=== PATIENT | female | born 1990 | race African-American/Black ===

== ENCOUNTER 2017-04-08 09:14 | Emergency (ER) | payer SELFPAY ==
[~2017-04-08 09:14] MED LIST: KEFLEX500 MG ORAL; NAPROXEN375 MG PO; NKM; NORCO 5-325 TA1 EACH ORAL; TRAMADOL HCL50 MG ORAL; ZANTAC150 MG ORAL; ZOFRAN ODT4 MG ORAL
--- NOTE | 2017-04-08 14:20 | Emergency Room Report ---
History of Present Illness General Chief Complaint: To Be Triaged Present Illness HPI Patient eloped before being seen by triage nurse or physician Allergies: Coded Allergies: No Known Allergies (Unverified , 04/02/12) Nursing Documentation-PMH Hx Asthma: Yes Hx Gastrointestinal Problems: Yes - gerd Medical Decision Making Diagnostic Impression: Primary Impression: Anxiety Disposition: LEFT W/OUT BEING SEEN Condition: Unknown Referrals: NOT CHOSEN IPA/,REFERRING (PCP) Ann Love M.D. Apr 08, 2017 14:19
[2017-04-09] MEDS ORDERED: PEPCID40 MG PO (09:26)
[2017-04-09] MEDS ORDERED: NITROFURANTOIN100 M2 ORAL (09:58)
== END 2017-04-08 11:00 | disposition left against medical advice (07) ==
LOC: EMR 10:30
DX: Z53.21 Procedure and treatment not carried out due to patient leaving prior to being seen by health care provider (principal); K21.9 Gastro-esophageal reflux disease without esophagitis; J45.909 Unspecified asthma, uncomplicated

== ENCOUNTER 2017-04-09 08:31 | Emergency (ER) | payer SELFPAY ==
[~2017-04-09] VITALS: Ht 160 cm; Wt 79.4 kg
[2017-04-09 08:44] VITALS: BP 140/107
[2017-04-09] MEDS ORDERED: LORazepam Inj 2mg/ml 1ml IV ONE (09:00)
[2017-04-09 09:03] LABS: APPEARANCE,URINE TURBID; BILIRUBIN, URINE NEGATIVE (NEGATIVE); GLUCOSE, URINE (UA) 3+ (NEGATIVE); KETONES,URINE 3+ (NEGATIVE); LEUKOCYTE ESTERASE ,URINE 3+ (NEGATIVE); NITRITE,URINE NEGATIVE (NEGATIVE); PH,URINE 6 (4.5-8.0); PROTEIN,URINE 2+ (NEGATIVE); UROBILINOGEN,URINE NORMAL MG/DL (0.0-1.0)
[2017-04-09 09:06] LABS: COLOR,URINE YELLOW
[2017-04-09 09:06] LABS: BASOPHILS % (AUTO) 3.2 % (0.0-2.0); EOSINOPHILS % (AUTO) 1.5 % (0.0-3.0); HEMATOCRIT 45.4 % (37.0-47.0); HEMOGLOBIN 15.5 G/DL (12.0-16.0); LYMPHOCYTES % (AUTO) 18.4 % (20.0-45.0); MEAN CORPUSCULAR VOLUME 90 FL (80-99); MONOCYTES % (AUTO) 9.8 % (1.0-10.0); NEUTROPHILS % (AUTO) 67.1 % (45.0-75.0); PLATELET COUNT 248 K/UL (150-450); RED BLOOD COUNT 5.04 M/UL (4.20-5.40); RED CELL DISTRIBUTION WIDTH 12.8 % (11.6-14.8); WHITE BLOOD COUNT 6.3 K/UL (4.8-10.8)
[2017-04-09 09:18] LABS: ANION GAP 12 mmol/L (5-15); BLOOD UREA NITROGEN 4 mg/dL (7-18); CALCIUM 9.6 MG/DL (8.5-10.1); CARBON DIOXIDE 26 MMOL/L (21-32); CHLORIDE 99 MMOL/L (98-107); CREATININE 0.9 MG/DL (0.55-1.30); POTASSIUM 3.6 MMOL/L (3.5-5.1); SODIUM 136 MMOL/L (136-145)
--- NOTE | 2017-04-09 09:25 | Emergency Room Report ---
History of Present Illness General Chief Complaint: General Complaint Source: Patient Present Illness HPI 27-year-old female, history of intermittent alcohol use, p/w epigastric abd pain nausea and vomiting for 3 days. Pt reports n/v, 6 episodes of nbnb vomiting, no diarrhea. Denies black or bloody stools. Patient states pain started gradually , localized to epigastric area, non radiating, burning in nature, intermittent. No relieving or exacerbating factors. Admits to have this pain multiple times in the past. denies chronic NSAID use. Denies fever, chills. No hx of abdominal surgeries. No hx of endoscopies/colonoscopies. States that she frequently binges alcohol but does not drink every day, states that she drank yesterday and took multiple shots of alcohol Allergies: Coded Allergies: No Known Allergies (Unverified , 04/02/12) Patient History Past Medical History: see triage record Past Surgical History: none Pertinent Family History: none Last Menstrual Period: 04/02/17 Now: No Reviewed Nursing Documentation: PMH: Agreed, PSxH: Agreed Nursing Documentation-PMH Hx Asthma: Yes Hx Gastrointestinal Problems: Yes - GERD Review of Systems All Other Systems: negative except mentioned in HPI Physical Exam Vital Signs Date Time Temp Pulse Resp B/P (MAP) Pulse Ox O2 Delivery O2 Flow Rate FiO2 04/09/17 08:34 97.9 103 17 149/104 95 Room Air 97.9 Sp02 EP Interpretation: reviewed, normal General Appearance: alert, GCS 15, non-toxic, moderate distress Head: normocephalic, atraumatic Eyes: bilateral eye normal inspection, bilateral eye PERRL, bilateral eye EOMI ENT: normal ENT inspection, normal pharynx, normal voice, moist mucus membranes Neck: normal inspection, full range of motion, supple Respiratory: normal inspection, lungs clear, normal breath sounds, no respiratory distress, no retraction, no wheezing, speaking full sentences, chest symmetrical Cardiovascular #1: normal inspection, regular rate, rhythm, no edema, normal capillary refill Cardiovascular #2: 2+ radial (R), 2+ radial (L) Gastrointestinal: normal inspection, non tender, soft, non-distended, no guarding Musculoskeletal: normal inspection, back normal, normal range of motion, non- tender Neurologic: normal inspection, alert, oriented x3, responsive, motor strength/ tone normal, sensory intact, normal gait, speech normal Psychiatric: judgement/insight normal, memory normal, anxious Skin: normal inspection, normal color, no rash, warm/dry, well hydrated, normal turgor Medical Decision Making Diagnostic Impression: Primary Impression: UTI (urinary tract infection) Additional Impressions: Nausea and vomiting Alcohol dependence ER Course 27-year-old female with nausea vomiting, epigastric pain, after alcohol binge Differential Diagnosis: Alcohol-induced Gastritis, gastroenteritis, cholecystitis, appendicitis, UTI/ pyelo At this time abdomen is soft nontender, not likely to have acute intra- abdominal surgical pathology, will hold CT for now. Plan: Basic labs, ua Pepcid, maalox, pain control, IVF ER course: Patient has remained stable during ED stay. given ativan for very mild anxiety with HR 101. no obvious tremors or tongue fasciculations Pain improved. Repeat abdominal exam is nontender. repeat HR 80s pt given librium Disposition: Patient is to be discharged to home. Prescriptions given are Pepcid, macrobid for UTI Patient is instructed to follow up with their primary care doctor within 5 days. Also told to seek alcohol detox / AA anonymous Patient is instructed to follow up with gastroenterology if not better or she may need further workup outpatient Strict return precautions discussed with patient such as fever, chills, worsening/severe abdominal pain, nausea, vomiting, black or bloody stools, which may indicate severe illness. Patient verbalizes understanding and agrees with plan. Please note that this Emergency Department Report was dictated using [employer] sales representative technology software, occasionally this can lead to erroneous entry secondary to interpretation by the dictation equipment Rhythm Strip EP Interpretation: Yes Rate: 84 Rhythm: NSR, no PVCs, no ectopy Laboratory Tests Test 04/09/17 08:40 04/09/17 08:50 Urine Color Yellow Urine Appearance Turbid Urine pH 6 (4.5-8.0) Urine Specific [place] 1.025 (1.005-1.035) Urine Protein 2+ (NEGATIVE) H Urine Glucose (UA) 3+ (NEGATIVE) H Urine Ketones 3+ (NEGATIVE) H Urine Occult Blood 3+ (NEGATIVE) H Urine Nitrite Negative (NEGATIVE) Urine Bilirubin Negative (NEGATIVE) Urine Urobilinogen Normal MG/DL (0.0-1.0) Urine Leukocyte Esterase 3+ (NEGATIVE) H Urine RBC 10-15 /HPF (0 - 2) H Urine WBC 30-40 /HPF (0 - 2) H Urine Squamous Epithelial Cells Moderate /LPF (NONE/OCC) H Urine Bacteria Many /HPF (NONE) H Urine Mucus Moderate /LPF (NONE/OCC) H Urine HCG, Qualitative Negative Urine Opiates Screen Negative (NEGATIVE) Urine Barbiturates Screen Negative (NEGATIVE) Phencyclidine (PCP) Screen Negative (NEGATIVE) Urine Amphetamines Screen Negative (NEGATIVE) Urine Benzodiazepines Screen Negative (NEGATIVE) Urine Cocaine Screen Negative (NEGATIVE) Urine Marijuana (THC) Screen Negative (NEGATIVE) White Blood Count 6.3 K/UL (4.8-10.8) Red Blood Count 5.04 M/UL (4.20-5.40) Hemoglobin 15.5 G/DL (12.0-16.0) Hematocrit 45.4 % (37.0-47.0) Mean Corpuscular Volume 90 FL (80-99) Mean Corpuscular Hemoglobin 30.7 PG (27.0-31.0) Mean Corpuscular Hemoglobin Concent 34.1 G/DL (32.0-36.0) Red Cell Distribution Width 12.8 % (11.6-14.8) Platelet Count 248 K/UL (150-450) Mean Platelet Volume 7.1 FL (6.5-10.1) Neutrophils (%) (Auto) 67.1 % (45.0-75.0) Lymphocytes (%) (Auto) 18.4 % (20.0-45.0) L Monocytes (%) (Auto) 9.8 % (1.0-10.0) Eosinophils (%) (Auto) 1.5 % (0.0-3.0) Basophils (%) (Auto) 3.2 % (0.0-2.0) H Sodium Level 136 MMOL/L (136-145) Potassium Level 3.6 MMOL/L (3.5-5.1) Chloride Level 99 MMOL/L (98-107) Carbon Dioxide Level 26 MMOL/L (21-32) Anion Gap 12 mmol/L (5-15) Blood Urea Nitrogen 4 mg/dL (7-18) L Creatinine 0.9 MG/DL (0.55-1.30) Estimate Glomerular Filtration Rate > 60 mL/min (>60) Glucose Level 101 MG/DL (74-106) Calcium Level 9.6 MG/DL (8.5-10.1) Total Bilirubin 1.1 MG/DL (0.2-1.0) H Direct Bilirubin 0.2 MG/DL (0.0-0.3) Aspartate Amino Transferase (AST) 94 U/L (15-37) H Alanine Aminotransferase (ALT) 74 U/L (12-78) Alkaline Phosphatase 62 U/L (46-116) Total Protein 8.5 G/DL (6.4-8.2) H Albumin 4.2 G/DL (3.4-5.0) Globulin 4.3 g/dL Albumin/Globulin Ratio 1.0 (1.0-2.7) Lipase 130 U/L (73-393) Serum Alcohol 45 mg/dL Last Vital Signs Date Time Temp Pulse Resp B/P (MAP) Pulse Ox O2 Delivery O2 Flow Rate FiO2 04/09/17 08:44 97.9 101 19 140/107 97 Room Air 97.9 Disposition: HOME, SELF-CARE Condition: Improved Scripts Nitrofurantoin Monohyd/M-Cryst* (MACROBID 100 MG*) 100 Mg Capsule 100 MG ORAL EVERY 12 HOURS for 7 Days, #14 CAP 0 Refills Prov: Ann Love M.D. 04/09/17 Famotidine (PEPCID) 40 Mg Tablet 40 MG PO QHS, #14 TAB 0 Refills Prov: Ann Love M.D. 04/09/17 Ann Love M.D. Apr 09, 2017 09:25
[2017-04-09] MEDS ORDERED: PEPCID40 MG PO (09:26)
[2017-04-09 09:28] LABS: ALANINE AMINOTRANSFERASE 74 U/L (12-78); ALBUMIN 4.2 G/DL (3.4-5.0); ALKALINE PHOSPHATASE 62 U/L (46-116); ASPARTATE AMINO TRANSFERASE 94 U/L (15-37); BILIRUBIN,TOTAL 1.1 MG/DL (0.2-1.0)
[2017-04-09 09:35] LABS: BILIRUBIN,DIRECT 0.2 MG/DL (0.0-0.3)
[2017-04-09] MEDS ORDERED: chlordiazePOXIDE 25mg Cap ORAL ONE (09:45)
[2017-04-09 09:50] VITALS: BP 131/88
[2017-04-09] MEDS ORDERED: NITROFURANTOIN100 M2 ORAL (09:58)
== END 2017-04-09 09:50 | disposition home or self-care (01) ==
LOC: EMR 09:20
DX: N39.0 Urinary tract infection, site not specified (principal); R11.2 Nausea with vomiting, unspecified; F10.20 Alcohol dependence, uncomplicated; R10.13 Epigastric pain; J45.909 Unspecified asthma, uncomplicated; K21.9 Gastro-esophageal reflux disease without esophagitis
CPT/HCPCS: 36415; 80053; 80307; 81003; 81025; 82248; 83690; 85025; 87086; 96361; 96374; 96375; 99284; G0480; J2405; S0028; 80329

== ENCOUNTER 2017-08-05 13:54 | Emergency (ER) | payer MEDICAID ==
[~2017-08-05] VITALS: Ht 160 cm; Wt 79.4 kg
[~2017-08-05 13:54] MED LIST changes: +NITROFURANTOIN100 M2 ORAL; +PEPCID40 MG PO
[2017-08-05 14:09] VITALS: BP 142/88
[2017-08-05] MEDS ORDERED: Sodium Chloride 500ML 500 ML IV ONE (14:11)
[2017-08-05 14:39] LABS: APPEARANCE,URINE SLIGHTLY CLOUDY; BILIRUBIN, URINE NEGATIVE (NEGATIVE); COLOR,URINE PALE YELLOW; GLUCOSE, URINE (UA) NEGATIVE (NEGATIVE); KETONES,URINE NEGATIVE (NEGATIVE); LEUKOCYTE ESTERASE ,URINE 1+ (NEGATIVE); NITRITE,URINE NEGATIVE (NEGATIVE); PH,URINE 7 (4.5-8.0); PROTEIN,URINE NEGATIVE (NEGATIVE); UROBILINOGEN,URINE NORMAL MG/DL (0.0-1.0)
--- NOTE | 2017-08-05 14:40 | Emergency Room Report ---
History of Present Illness General Chief Complaint: Abdominal Pain Source: Patient Present Illness HPI Patient presents with complaints of general weakness reports that this morning around 5:00 she became nauseated Had vomiting episode along with diarrhea She feels chills and at times shaky Reports that 2 of her family members have had recent flu symptoms Denies any neck pain or photophobia Had mild epigastric cramping but she with the vomiting but no other abdominal pain at this time Denies any rash denies any recent travel Allergies: Coded Allergies: No Known Allergies (Unverified , 04/02/12) Patient History Past Medical History: see triage record Pertinent Family History: none Last Menstrual Period: 2 weeks ago Now: No Reviewed Nursing Documentation: PMH: Agreed; PSxH: Agreed Nursing Documentation-PMH Past Medical History: No Stated History Hx Asthma: Yes Hx Gastrointestinal Problems: Yes - GERD Review of Systems All Other Systems: negative except mentioned in HPI Physical Exam Vital Signs Date Time Temp Pulse Resp B/P (MAP) Pulse Ox O2 Delivery O2 Flow Rate FiO2 08/05/17 13:59 98.3 96 22 134/88 98 Room Air 98.2 Sp02 EP Interpretation: reviewed, normal General Appearance: well appearing, no apparent distress Head: normocephalic, atraumatic Eyes: bilateral eye PERRL, bilateral eye EOMI ENT: hearing grossly normal, normal pharynx, TMs + canals normal, uvula midline Neck: full range of motion, supple, no meningismus, no bony tend Respiratory: lungs clear, normal breath sounds, no rhonchi, no respiratory distress, no retraction, no accessory muscle use Cardiovascular #1: normal peripheral pulses, regular rate, rhythm, no edema, no gallop, no JVD, no murmur Gastrointestinal: normal bowel sounds, non tender, soft, no mass, no organomegaly, non-distended, no guarding, no hernia, no pulsatile mass, no rebound Genitourinary: no CVA tenderness Musculoskeletal: normal inspection Neurologic: oriented x3, responsive, hospital clerk III-XII nml as tested, motor strength/ tone normal, sensory intact Psychiatric: mood/affect normal Skin: normal color, no rash, warm/dry, palpation normal Lymphatic: normal inspection, no adenopathy Medical Decision Making Diagnostic Impression: Primary Impression: Nausea and vomiting Additional Impression: Diarrhea ER Course With the patient's history and examination, multiple differentials considered, including but not limited to , ectopic , ovarian torsion, gastritis, cholecystitis, pancreatitis, appendicitis Given the patient's repeat abdominal exam emergency imaging was not obtained Patient's blood work is at baseline levels Patient also at the time of discussion reports that she had some alcohol this weekend Otherwise continues to feel better and at this time is stable for close outpatient follow-up Labs Test 08/05/17 14:20 White Blood Count 7.9 K/UL (4.8-10.8) Red Blood Count 5.02 M/UL (4.20-5.40) Hemoglobin 14.5 G/DL (12.0-16.0) Hematocrit 44.6 % (37.0-47.0) Mean Corpuscular Volume 89 FL (80-99) Mean Corpuscular Hemoglobin 29.0 PG (27.0-31.0) Mean Corpuscular Hemoglobin Concent 32.6 G/DL (32.0-36.0) Red Cell Distribution Width 11.9 % (11.6-14.8) Platelet Count 268 K/UL (150-450) Mean Platelet Volume 8.0 FL (6.5-10.1) Neutrophils (%) (Auto) 66.5 % (45.0-75.0) Lymphocytes (%) (Auto) 20.3 % (20.0-45.0) Monocytes (%) (Auto) 8.4 % (1.0-10.0) Eosinophils (%) (Auto) 2.9 % (0.0-3.0) Basophils (%) (Auto) 2.0 % (0.0-2.0) Urine Color Pale yellow Urine Appearance Slightly cloudy Urine pH 7 (4.5-8.0) Urine Specific [place] 1.010 (1.005-1.035) Urine Protein Negative (NEGATIVE) Urine Glucose (UA) Negative (NEGATIVE) Urine Ketones Negative (NEGATIVE) Urine Occult Blood 1+ (NEGATIVE) Urine Nitrite Negative (NEGATIVE) Urine Bilirubin Negative (NEGATIVE) Urine Urobilinogen Normal MG/DL (0.0-1.0) Urine Leukocyte Esterase 1+ (NEGATIVE) Urine RBC 2-4 /HPF (0 - 2) Urine WBC 5-10 /HPF (0 - 2) Urine Squamous Epithelial Cells Many /LPF (NONE/OCC) Urine Bacteria Few /HPF (NONE) Urine HCG, Qualitative Negative (NEGATIVE) Sodium Level 136 MMOL/L (136-145) Potassium Level 3.6 MMOL/L (3.5-5.1) Chloride Level 101 MMOL/L (98-107) Carbon Dioxide Level 26 MMOL/L (21-32) Anion Gap 9 mmol/L (5-15) Blood Urea Nitrogen 8 mg/dL (7-18) Creatinine 0.9 MG/DL (0.55-1.30) Estimat Glomerular Filtration Rate > 60 mL/min (>60) Glucose Level 94 MG/DL (74-106) Calcium Level 8.9 MG/DL (8.5-10.1) Total Bilirubin 0.4 MG/DL (0.2-1.0) Aspartate Amino Transf (AST/SGOT) 29 U/L (15-37) Alanine Aminotransferase (ALT/SGPT) 55 U/L (12-78) Alkaline Phosphatase 59 U/L (46-116) Total Protein 7.5 G/DL (6.4-8.2) Albumin 3.7 G/DL (3.4-5.0) Globulin 3.8 g/dL Albumin/Globulin Ratio 1.0 (1.0-2.7) Lipase 72 U/L (73-393) Last Vital Signs Date Time Temp Pulse Resp B/P (MAP) Pulse Ox O2 Delivery O2 Flow Rate FiO2 08/05/17 14:09 98.2 78 18 142/88 100 Room Air 98.2 Status: improved Disposition: HOME, SELF-CARE Condition: Improved Scripts Ondansetron (Zofran) 4 Mg Tablet 4 MG ORAL Q6H PRN for Nausea & Vomiting, #12 TAB Prov: Eli Colin DO 08/05/17 Referrals: NOT CHOSEN IPA/MD,REFERRING (PCP) Additional Instructions: Patient is provided with the discharge instructions notified to follow up with primary doctor in the next 2-3 days otherwise return to the er with any worsening symptoms. Please note that this report is being documented using [employer] technology. This can lead to erroneous entry secondary to incorrect interpretation by the dictating instrument. Eli Colin DO Aug 05, 2017 14:40
[2017-08-05 14:44] LABS: EOSINOPHILS % (AUTO) 2.9 % (0.0-3.0); HEMATOCRIT 44.6 % (37.0-47.0); HEMOGLOBIN 14.5 G/DL (12.0-16.0); LYMPHOCYTES % (AUTO) 20.3 % (20.0-45.0); MEAN CORPUSCULAR VOLUME 89 FL (80-99); MONOCYTES % (AUTO) 8.4 % (1.0-10.0); NEUTROPHILS % (AUTO) 66.5 % (45.0-75.0); PLATELET COUNT 268 K/UL (150-450); RED BLOOD COUNT 5.02 M/UL (4.20-5.40); RED CELL DISTRIBUTION WIDTH 11.9 % (11.6-14.8); WHITE BLOOD COUNT 7.9 K/UL (4.8-10.8)
[2017-08-05 15:00] LABS: ALANINE AMINOTRANSFERASE 55 U/L (12-78); ALBUMIN 3.7 G/DL (3.4-5.0); ALKALINE PHOSPHATASE 59 U/L (46-116); ASPARTATE AMINO TRANSFERASE 29 U/L (15-37); BILIRUBIN,TOTAL 0.4 MG/DL (0.2-1.0); BLOOD UREA NITROGEN 8 mg/dL (7-18); CALCIUM 8.9 MG/DL (8.5-10.1); CREATININE 0.9 MG/DL (0.55-1.30)
[2017-08-05 15:10] LABS: ANION GAP 9 mmol/L (5-15); CARBON DIOXIDE 26 MMOL/L (21-32); CHLORIDE 101 MMOL/L (98-107); POTASSIUM 3.6 MMOL/L (3.5-5.1); SODIUM 136 MMOL/L (136-145)
[2017-08-05 16:15] VITALS: BP 134/79
[2017-08-05] MEDS ORDERED: ZOFRAN4 M1 ORAL (16:15)
[2017-08-05 16:25] VITALS: BP 134/79
== END 2017-08-05 16:30 | disposition home or self-care (01) ==
LOC: EMR 14:34
DX: R11.2 Nausea with vomiting, unspecified (principal); R19.7 Diarrhea, unspecified; K21.9 Gastro-esophageal reflux disease without esophagitis; J45.909 Unspecified asthma, uncomplicated
CPT/HCPCS: 36415; 80053; 81003; 81025; 83690; 85025; 96374; 99284; J2405; J7040; 96360

== ENCOUNTER 2017-12-01 15:02 | Emergency (ER) | payer MEDICAID ==
[~2017-12-01] VITALS: Ht 160 cm; Wt 79.4 kg
[~2017-12-01 15:02] MED LIST changes: +CHLORDIAZEPOXID25 MG PO; +ZOFRAN4 M1 ORAL
[2017-12-01 15:09] VITALS: BP 127/84
[2017-12-01] MEDS ORDERED: Bacitracin Oint UD TOPIC ONE (15:30)
[2017-12-01] MEDS ORDERED: Tetanus/Diptheria/Pertussis Vaccine 0.5ml Syr IM ONE (15:30)
--- NOTE | 2017-12-01 15:32 | Emergency Room Report ---
History of Present Illness General Chief Complaint: Multiple Trauma/Fall Source: Patient Present Illness HPI 27-year-old female presents to the emergency department complaining of localized 7 out of 10 in severity lip sensitivity and soreness to the right upper lip and front teeth. Patient reports open wound with some bleeding both on the inside of her lip and outside. Patient states status post mechanical trip and fall where she she landed and hit her top lip. Patient denies loss of consciousness she denies midline neck or back pain. Patient denies pain elsewhere on the body.She reports initially having bleeding however it has subsided. Patient denies bloody nose. She denies dizziness, nausea or vomiting. She denies feeling broken teeth. No pain to the roof of her mouth She is not sure when her last tetanus vaccination was she denies taking blood thinning medications. Patient states she has not taken anything medication for her symptoms today. Allergies: Coded Allergies: No Known Allergies (Unverified , 04/02/12) Patient History Past Medical History: see triage record Past Surgical History: none Pertinent Family History: none Last Menstrual Period: 11/15/17 Reviewed Nursing Documentation: PMH: Agreed; PSxH: Agreed Nursing Documentation-PMH Past Medical History: No Stated History Hx Asthma: Yes Hx Gastrointestinal Problems: Yes - GERD Review of Systems All Other Systems: negative except mentioned in HPI Physical Exam Vital Signs Date Time Temp Pulse Resp B/P (MAP) Pulse Ox O2 Delivery O2 Flow Rate FiO2 12/01/17 15:04 98.3 83 18 127/84 96 Room Air 98.2 Sp02 EP Interpretation: reviewed, normal General Appearance: no apparent distress, alert, GCS 15, non-toxic Head: normocephalic, other - upper lip abrasion- laceration approx 1mm in length, there is also abrasion to the oral mucosa of the upper lip which is 0.4 cm in size, not bleeding, not through and through. Teeth are not loose, some tenderness on palpation of both upper front teeth. some swelling noted to the upper lip, no bony ttp anywhere on the face. Eyes: bilateral eye normal inspection, bilateral eye PERRL ENT: hearing grossly normal, normal voice, other - both upper front teeth are tender but no loose, no bleeding about the gums, no movement with traction on the upper palate. Neck: full range of motion Respiratory: lungs clear, normal breath sounds, speaking full sentences Cardiovascular #1: regular rate, rhythm Musculoskeletal: back normal, gait/station normal, normal range of motion, non- tender Neurologic: alert, oriented x3, responsive, motor strength/tone normal, sensory intact, normal gait, speech normal, grossly normal, oriented Psychiatric: judgement/insight normal Skin: normal color, no rash, warm/dry, well hydrated, abrasions - upper lip abrasion- laceration approx 1mm in length, there is also abrasion to the oral mucosa of the upper lip which is 0.4 cm in size, not bleeding, not through and through. Swelling noted to the upper lip. Lymphatic: no adenopathy Medical Decision Making PA Attestation Dr. Colin is my supervising Physician whom patient management has been discussed with. Diagnostic Impression: Primary Impression: Abrasion of lip, initial encounter Additional Impression: Contusion of lip, initial encounter ER Course 27-year-old female presents to the emergency department complaining of localized 7 out of 10 in severity lip sensitivity and soreness to the right upper lip and front teeth. Patient reports open wound with some bleeding both on the inside of her lip and outside. Patient states status post mechanical trip and fall where she she landed and hit her top lip. Patient denies loss of consciousness she denies midline neck or back pain. Patient denies pain elsewhere on the body.She reports initially having bleeding however it has subsided. Patient denies bloody nose. She denies dizziness, nausea or vomiting. She denies feeling broken teeth. No pain to the roof of her mouth She is not sure when her last tetanus vaccination was she denies taking blood thinning medications. Patient states she has not taken anything medication for her symptoms today. Ddx considered but are not limited to laceration, tendon injury, cellulitis, amputation Vital signs: are WNL, pt. is afebrile H&PE are most consistent with: upper lip abrasion- laceration approx 1mm in length, there is also abrasion to the oral mucosa of the upper lip which is 0.4 cm in size, not bleeding, not through and through. Teeth are not loose, some tenderness on palpation of both upper front teeth. some swelling noted to the upper lip, no bony ttp anywhere on the face. ORDERS: none required at this time, the diagnosis is clinical ED INTERVENTIONS: - Tetanus vaccination is administered. - Wounds are irrigated, both are visualized to be superficial and do not require sutures. -Bacitracin applied to outter lip abrasion. . DISCHARGE: At this time pt. is stable for d/c to home. Will provide printed patient care instructions, and any necessary prescriptions. Care plan and follow up instructions have been discussed with the patient prior to discharge. Last Vital Signs Date Time Temp Pulse Resp B/P (MAP) Pulse Ox O2 Delivery O2 Flow Rate FiO2 12/01/17 15:09 98.2 83 18 127/84 96 Room Air 98.2 Disposition: HOME, SELF-CARE Condition: Stable Scripts Acetaminophen* (TYLENOL EXTRA STRENGTH*) 500 Mg Tablet 500 MG ORAL Q6H, #20 TAB 0 Refills Prov: Kelly Arguello 12/01/17 Allantoin/Onion/Peg/Water (MEDERMA GEL) 20 Gm Gel..gram. 1 APPLIC TP TID, #20 GM 3 Refills Prov: Kelly Arguello 12/01/17 Bacitracin/Polymyxin B Sulfate (BACITRACIN-POLYMYXIN OINTMENT) 28.35 Gm Oint...g. 1 APPLIC TP BID, #28.3 GM Prov: Kelly Arguello 12/01/17 Patient Instructions: Abrasion, Tegl-md-Oour Additional Instructions: Take medications as directed. Follow up with a Primary Care Provider in 3-5 days, even if your symptoms have resolved. --Please review list of primary care clinics, if you do not already have a primary care provider Return sooner to ED if new symptoms occur, or current symptoms become worse. - Please note that this Emergency Department Report was dictated using [employer] analyst developer technology software, occasionally this can lead to erroneous entry secondary to interpretation by the dictation equipment. Kelly Arguello Dec 01, 2017 15:32
[2017-12-01] MEDS ORDERED: TYLENOL EXTRA500 MG ORAL (15:33)
[2017-12-01] MEDS ORDERED: BACITRACIN-P28.35 GM TP (15:33)
[2017-12-01] MEDS ORDERED: MEDERMA GEL20 GM TP (15:33)
[2017-12-01 15:40] VITALS: BP 127/84
== END 2017-12-01 15:41 | disposition home or self-care (01) ==
LOC: EMR 15:25
DX: S00.511A Abrasion of lip, initial encounter (principal); S00.531A Contusion of lip, initial encounter; W01.0XXA Fall on same level from slipping, tripping and stumbling without subsequent striking against object, initial encounter; Y92.9 Unspecified place or not applicable; Z23 Encounter for immunization; J45.909 Unspecified asthma, uncomplicated; K21.9 Gastro-esophageal reflux disease without esophagitis
CPT/HCPCS: 90471; 90715; 99283

== ENCOUNTER 2018-07-03 08:39 | Emergency (ER) | payer SELFPAY ==
[~2018-07-03] VITALS: Ht 160 cm; Wt 79.4 kg
[~2018-07-03 08:39] MED LIST changes: +BACITRACIN-P28.35 GM TP; +MEDERMA GEL20 GM TP; +TYLENOL EXTRA500 MG ORAL
--- NOTE | 2018-07-03 08:56 | Emergency Room Report ---
History of Present Illness General Chief Complaint: Abdominal Pain Source: Patient Present Illness HPI 28yo F p/w n/v multiple episodes of nonbloody/nonbilious material, with epigastric area, sharp, moderate to severe intensity, nonradiating abdominal pain, and one episode of loose stools per day x 3d. Patient denies f/c, urinary complaints, vaginal dc, constipation, or obvious alleviating/ exacerbating factors, but does think it may have been triggered by an episode of binge drinking alcohol 3 , denies any drug or marijuana use however. Allergies: Coded Allergies: No Known Allergies (Unverified , 04/02/12) Patient History Past Medical History: see triage record Last Menstrual Period: 06/26/18 Reviewed Nursing Documentation: PMH: Agreed; PSxH: Agreed Nursing Documentation-PMH Hx Asthma: Yes Hx Gastrointestinal Problems: Yes - GERD Review of Systems All Other Systems: negative except mentioned in HPI Physical Exam Vital Signs Date Time Temp Pulse Resp B/P (MAP) Pulse Ox O2 Delivery O2 Flow Rate FiO2 07/03/18 08:44 98.2 92 16 95 Room Air Sp02 EP Interpretation: reviewed, normal General Appearance: no apparent distress, alert, non-toxic Head: normocephalic Eyes: bilateral eye normal inspection, bilateral eye PERRL, bilateral eye EOMI ENT: normal ENT inspection, hearing grossly normal, normal pharynx, no angioedema, normal voice, moist mucus membranes Neck: normal inspection, full range of motion, supple, supple/symm/no masses Respiratory: chest non-tender, lungs clear, normal breath sounds, chest symmetrical, palpation of chest normal Cardiovascular #1: normal peripheral pulses, regular rate, rhythm Cardiovascular #2: 2+ radial (R), 2+ radial (L) Gastrointestinal: normal inspection, non tender, soft, no mass, no guarding, no rebound Rectal: deferred Genitourinary: normal inspection, no CVA tenderness Musculoskeletal: back normal, gait/station normal, normal range of motion, non- tender, no calf tenderness Neurologic: alert, responsive, medicaid analyst III-XII nml as tested, motor strength/tone normal, sensory intact, speech normal Psychiatric: judgement/insight normal, memory normal, mood/affect normal Skin: normal color, no rash, warm/dry, normal turgor Lymphatic: no adenopathy Medical Decision Making Diagnostic Impression: Primary Impression: Gastritis ER Course Patient extremely well-appearing clinically, and her laboratory examination corroborates this. She has not vomited at all since being here, has soft, nontender abdomen, normal CBC, chemistry panels including lipase, LFTs, negative test, unremarkable urinalysis. She was given IV fluids, Zofran, Pepcid, and will be discharged with instructions to avoid alcohol, and return for severe pain, persistent vomiting, blood in vomit or stools, or any new symptoms. Diagnosis gastritis, will discharge with Pepcid and Zofran Reevaluation Time: 10:04 Last Vital Signs Date Time Temp Pulse Resp B/P (MAP) Pulse Ox O2 Delivery O2 Flow Rate FiO2 07/03/18 08:44 98.2 92 16 95 Room Air Status: improved Reevaluation Impression abdomen soft, nontender, patient feels well Disposition: HOME, SELF-CARE Condition: Stable AKHIL TOM M.D July 03, 2018 08:56
--- NOTE | 2018-07-03 09:01 | NUR ---
ED Nurse Note: Pt came in from home c/o nausea/vomiting/diarrhea since Saturday07/01/18. Pt stated emesis was fluid , sputum, and "whatever I ate". Last bowel movement was this morning. Medial upper abdominal pain 07/28. Will cont to monitor.
[2018-07-03 09:03] VITALS: BP 128/79
--- NOTE | 2018-07-03 09:05 | NUR ---
ED Nurse Note: Blood and urine collected and sent to lab
[2018-07-03 09:14] LABS: APPEARANCE,URINE CLEAR; BILIRUBIN, URINE NEGATIVE (NEGATIVE); COLOR,URINE PALE YELLOW; GLUCOSE, URINE (UA) NEGATIVE (NEGATIVE); KETONES,URINE 2+ (NEGATIVE); LEUKOCYTE ESTERASE ,URINE NEGATIVE (NEGATIVE); NITRITE,URINE NEGATIVE (NEGATIVE); PH,URINE 5 (4.5-8.0); PROTEIN,URINE NEGATIVE (NEGATIVE); UROBILINOGEN,URINE NORMAL MG/DL (0.0-1.0)
[2018-07-03 09:17] LABS: BASOPHILS % (AUTO) 1.7 % (0.0-2.0); EOSINOPHILS % (AUTO) 2.9 % (0.0-3.0); HEMATOCRIT 43.5 % (37.0-47.0); HEMOGLOBIN 14.6 G/DL (12.0-16.0); LYMPHOCYTES % (AUTO) 17.8 % (20.0-45.0); MEAN CORPUSCULAR VOLUME 87 FL (80-99); NEUTROPHILS % (AUTO) 68.6 % (45.0-75.0); PLATELET COUNT 197 K/UL (150-450); RED CELL DISTRIBUTION WIDTH 13.4 % (11.6-14.8); WHITE BLOOD COUNT 6.5 K/UL (4.8-10.8)
[2018-07-03 09:26] LABS: ANION GAP 15 mmol/L (5-15); BLOOD UREA NITROGEN 7 mg/dL (7-18); CALCIUM 9.1 MG/DL (8.5-10.1); CARBON DIOXIDE 23 MMOL/L (21-32); CHLORIDE 100 MMOL/L (98-107); CREATININE 0.8 MG/DL (0.55-1.30); POTASSIUM 3.9 MMOL/L (3.5-5.1); SODIUM 138 MMOL/L (136-145)
[2018-07-03 09:30] LABS: ALANINE AMINOTRANSFERASE 33 U/L (12-78); ALBUMIN 4.1 G/DL (3.4-5.0); ALKALINE PHOSPHATASE 76 U/L (46-116); ASPARTATE AMINO TRANSFERASE 46 U/L (15-37)
[2018-07-03] MEDS ORDERED: PEPCID AC20 M2 PO (10:05)
[2018-07-03] MEDS ORDERED: ZOFRAN4 M1 ORAL (10:05)
[2018-07-03 10:24] VITALS: BP 127/85
[2018-07-03 10:25] VITALS: BP 128/79
--- NOTE | 2018-07-03 10:25 | NUR ---
ER DISCHARGE NOTE: Patient is cleared to be discharged per ERMD, pt is aox4, on room air, with stable vital signs. pt was given dc and prescription instructions, pt was able to verbalize understanding, pt id band and iv site removed without complications. pt is able to ambulate with steady gait. pt took all belongings.
== END 2018-07-03 10:25 | disposition home or self-care (01) ==
LOC: EMR 09:00
DX: K29.70 Gastritis, unspecified, without bleeding (principal); J45.909 Unspecified asthma, uncomplicated; K21.9 Gastro-esophageal reflux disease without esophagitis
CPT/HCPCS: 36415; 80053; 81003; 83690; 84702; 85025; 96361; 96374; 96375; 99284; J2405; S0028

== ENCOUNTER 2019-08-29 00:25 | Emergency (ER) | payer MEDICAID ==
[~2019-08-29] VITALS: Ht 160 cm; Wt 79.4 kg
[~2019-08-29 00:25] MED LIST changes: +LIBRIUM10 MG ORAL; +PEPCID AC20 M2 PO
[2019-08-29 00:39] VITALS: BP 134/98
--- NOTE | 2019-08-29 00:49 | Emergency Room Report ---
History of Present Illness General Chief Complaint: General Complaint Source: Patient Present Illness HPI Is a 29-year-old female with history of alcohol abuse. She is currently in outpatient rehab. She says she started drinking again. Been binge drinking for last few days. Last drink was around 10 PM. She has nausea vomiting and diarrhea. [place] shaky and dizzy. Similar symptom in the past. No suicidal thoughts or homicidal thought. Vomiting is nonbloody nonbilious. Diarrhea is watery and loose. 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 Patient History Past Medical History: see triage record, old chart reviewed Past Surgical History: none Pertinent Family History: none Social History: Reports: alcohol use Last Menstrual Period: 08/22/19 Now: No : 0 Para: 0 Immunizations: other Reviewed Nursing Documentation: PMH: Agreed; PSxH: Agreed Nursing Documentation-PMH Past Medical History: No Stated History Hx Cardiac Problems: No Hx Hypertension: No Hx Pacemaker: No Hx Asthma: No Hx COPD: No Hx Diabetes: No Hx Cancer: No Hx Gastrointestinal Problems: No Hx Dialysis: No History Of Psychiatric Problem: Yes - ETOH abuse 4 years Hx Neurological Problems: No Hx Cerebrovascular Accident: No Hx Seizures: No Review of Systems Eye: Denies: eye pain, blurred vision ENT: Denies: ear pain, nose congestion, throat swelling Respiratory: Denies: cough, shortness of breath Cardiovascular: Denies: chest pain, palpitations Gastrointestinal: Reports: diarrhea, nausea, vomiting; Denies: abdominal pain Musculoskeletal: Denies: back pain, joint pain Skin: Denies: rash Neurological: Denies: headache, numbness Endocrine: Denies: increased thirst, increased urine Hematologic/Lymphatic: Denies: easy bruising All Other Systems: negative except mentioned in HPI Physical Exam Vital Signs Date Time Temp Pulse Resp B/P (MAP) Pulse Ox O2 Delivery O2 Flow Rate FiO2 08/29/19 00:32 98.8 101 22 134/98 (110) 96 Room Air Vitals unremarkable Sp02 EP Interpretation: reviewed, normal General Appearance: well appearing, no apparent distress, alert Head: normocephalic, atraumatic Eyes: bilateral eye PERRL, bilateral eye EOMI ENT: hearing grossly normal, normal pharynx Neck: full range of motion, supple, no meningismus Respiratory: chest non-tender, lungs clear, normal breath sounds Cardiovascular #1: regular rate, rhythm, no murmur Gastrointestinal: normal bowel sounds, non tender, no mass, no organomegaly, no bruit, non-distended Musculoskeletal: back normal, normal range of motion, gait/station normal Psychiatric: mood/affect normal Medical Decision Making Diagnostic Impression: Primary Impression: Alcohol dependence Qualified Codes: F10.20 - Alcohol dependence, uncomplicated Additional Impression: Alcohol withdrawal Qualified Codes: F10.230 - Alcohol dependence with withdrawal, uncomplicated ER Course Patient presents with alcohol withdrawal symptoms. She is better now. Labs unremarkable. Will discharge home. Last Vital Signs Date Time Temp Pulse Resp B/P (MAP) Pulse Ox O2 Delivery O2 Flow Rate FiO2 08/29/19 00:32 98.8 101 22 134/98 (110) 96 Room Air Status: improved Disposition: HOME, SELF-CARE Condition: Stable Scripts Chlordiazepoxide (Chlordiazepoxide HCl) 25 Mg Capsule 25 MG ORAL THREE TIMES A DAY, #15 CAP 0 Refills Prov: Luis Paiz MD 08/29/19 Additional Instructions: Continue with rehab. Follow-up with your doctor in 7 days. Return if symptoms worsen. Luis Paiz MD Aug 29, 2019 00:49
[2019-08-29] MEDS ORDERED: LORazepam Inj 2mg/ml 1ml IV ONE (01:00)
[2019-08-29 01:22] LABS: BASOPHILS % (AUTO) 1.6 % (0.0-2.0); HEMATOCRIT 42.8 % (37.0-47.0); HEMOGLOBIN 13.8 G/DL (12.0-16.0); LYMPHOCYTES % (AUTO) 31.4 % (20.0-45.0); MEAN CORPUSCULAR VOLUME 86 FL (80-99); MONOCYTES % (AUTO) 7.1 % (1.0-10.0); NEUTROPHILS % (AUTO) 56.9 % (45.0-75.0); PLATELET COUNT 286 K/UL (150-450); RED BLOOD COUNT 4.96 M/UL (4.20-5.40); RED CELL DISTRIBUTION WIDTH 13.4 % (11.6-14.8); WHITE BLOOD COUNT 9.3 K/UL (4.8-10.8)
[2019-08-29 01:25] LABS: APPEARANCE,URINE CLEAR; BILIRUBIN, URINE NEGATIVE (NEGATIVE); COLOR,URINE PALE YELLOW; GLUCOSE, URINE (UA) NEGATIVE (NEGATIVE); KETONES,URINE NEGATIVE (NEGATIVE); LEUKOCYTE ESTERASE ,URINE NEGATIVE (NEGATIVE); NITRITE,URINE NEGATIVE (NEGATIVE); PH,URINE 6 (4.5-8.0); PROTEIN,URINE NEGATIVE (NEGATIVE); UROBILINOGEN,URINE NORMAL MG/DL (0.0-1.0)
[2019-08-29 01:34] LABS: ANION GAP 13 mmol/L (5-15); BLOOD UREA NITROGEN 6 mg/dL (7-18); CALCIUM 8.5 MG/DL (8.5-10.1); CARBON DIOXIDE 25 MMOL/L (21-32); CHLORIDE 100 MMOL/L (98-107); CREATININE 0.9 MG/DL (0.55-1.30); POTASSIUM 3.6 MMOL/L (3.5-5.1); SODIUM 138 MMOL/L (136-145)
[2019-08-29 01:38] LABS: ALANINE AMINOTRANSFERASE 60 U/L (12-78); ALKALINE PHOSPHATASE 75 U/L (46-116); ASPARTATE AMINO TRANSFERASE 40 U/L (15-37); BILIRUBIN,TOTAL 0.3 MG/DL (0.2-1.0)
[2019-08-29] MEDS ORDERED: LIBRIUM25 MG ORAL (02:09)
[2019-08-29 02:14] VITALS: BP 134/98
== END 2019-08-29 02:15 | disposition home or self-care (01) ==
LOC: EMR 00:54
DX: F10.230 Alcohol dependence with withdrawal, uncomplicated (principal)
CPT/HCPCS: 36415; 80053; 81003; 81025; 83690; 85025; 96361; 96374; 96375; J2405; J7030; Z7502; 99284

== ENCOUNTER 2019-11-27 10:11 | Emergency (ER) | payer MEDICAID ==
[~2019-11-27] VITALS: Ht 170.2 cm; Wt 79.4 kg
[~2019-11-27 10:11] MED LIST changes: +LIBRIUM25 MG ORAL
[2019-11-27 10:15] VITALS: BP 126/82
--- NOTE | 2019-11-27 10:24 | NUR ---
ED Nurse Note: Patient from home and walked in due to alcohol withdrawal symptoms. Per patient, she has been drinking all day since saturday and her last alcohol drink was at 2am this morning. Patient experiences shaking on bilateral hands, abd pain with N/VD x 3 days. Patient is AAO x4, ambulates with steady gait with non labored breathing. Skin is warm and dry.
--- NOTE | 2019-11-27 10:25 | NUR ---
Note jeffryone in EDM - 11/27/19 at 1048 by PETER ED Nurse Note: Patient from home and walked in due to alcohol withdrawal symptoms. Per patient, she has been drinking all day since saturday and her last alcohol drink was at 2am this morning. Patient experiences shaking on bilateral hands, abd apib wuth N/VD x 3 days. Patient is AAO x4, ambulates with steady gait with non labored breathing. Skin is warm and dry.
[2019-11-27] MEDS ORDERED: chlordiazePOXIDE 25mg Cap ORAL ONE (10:30)
--- NOTE | 2019-11-27 11:00 | NUR ---
ED Nurse Note: Collected blood specimen then sent.
[2019-11-27 11:05] LABS: EOSINOPHILS % (AUTO) 1.7 % (0.0-3.0); HEMATOCRIT 39.3 % (37.0-47.0); HEMOGLOBIN 13.3 G/DL (12.0-16.0); LYMPHOCYTES % (AUTO) 21.2 % (20.0-45.0); MEAN CORPUSCULAR VOLUME 81 FL (80-99); MONOCYTES % (AUTO) 8.9 % (1.0-10.0); NEUTROPHILS % (AUTO) 63.2 % (45.0-75.0); PLATELET COUNT 325 K/UL (150-450); RED BLOOD COUNT 4.87 M/UL (4.20-5.40); RED CELL DISTRIBUTION WIDTH 13.2 % (11.6-14.8)
[2019-11-27 11:22] LABS: ANION GAP 11 mmol/L (5-15); BLOOD UREA NITROGEN 8 mg/dL (7-18); CALCIUM 8.3 MG/DL (8.5-10.1); CARBON DIOXIDE 24 MMOL/L (21-32); CHLORIDE 102 MMOL/L (98-107); CREATININE 0.9 MG/DL (0.55-1.30); POTASSIUM 3.5 MMOL/L (3.5-5.1); SODIUM 137 MMOL/L (136-145)
--- NOTE | 2019-11-27 11:25 | Emergency Room Report ---
History of Present Illness General Chief Complaint: Alcohol Intoxication Source: Patient Present Illness HPI 29-year-old female history of alcohol abuse currently on an outpatient treatment program presents with tremulousness, ongoing since this morning last drink was 2 AM, patient has been drinking rum, endorses some nausea, drinks multiple shots a day has been drinking for the past 4 days, patient has never had a withdrawal seizure, alleviating factors not using alcohol severity is moderate, constant Allergies: Coded Allergies: No Known Allergies (Unverified , 04/02/12) COVID-19 Screening Contact w/high risk pt: No Experienced COVID-19 symptoms?: No COVID-19 Testing performed 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 Patient History Past Medical History: see triage record Social History: Reports: alcohol use - Alcohol abuse Last Menstrual Period: currently on her period Reviewed Nursing Documentation: PMH: Agreed; PSxH: Agreed Nursing Documentation-PMH Hx Cardiac Problems: No Hx Hypertension: No Hx Pacemaker: No Hx Asthma: No Hx COPD: No Hx Diabetes: No Hx Cancer: No Hx Gastrointestinal Problems: No Hx Dialysis: No Hx Neurological Problems: No Hx Cerebrovascular Accident: No Hx Seizures: No Review of Systems All Other Systems: negative except mentioned in HPI Physical Exam Vital Signs Date Time Temp Pulse Resp B/P (MAP) Pulse Ox O2 Delivery O2 Flow Rate FiO2 11/27/19 10:15 98.2 100 17 126/82 95 Room Air Sp02 EP Interpretation: reviewed, normal General Appearance: well appearing, no apparent distress, alert Head: normocephalic, atraumatic Eyes: bilateral eye PERRL, bilateral eye EOMI ENT: uvula midline, moist mucus membranes Neck: supple, thyroid normal, supple/symm/no masses Respiratory: lungs clear, no respiratory distress, no retraction, no accessory muscle use Cardiovascular #1: normal peripheral pulses, regular rate, rhythm, no edema, no gallop, no murmur Gastrointestinal: non tender, soft, no guarding, no rebound Musculoskeletal: normal inspection Neurologic: alert, oriented x3, other - No tongue fasciculations no tremors Psychiatric: mood/affect normal Skin: no rash, warm/dry Medical Decision Making Diagnostic Impression: Primary Impression: Alcohol dependence Qualified Codes: F10.20 - Alcohol dependence, uncomplicated Additional Impression: Alcohol withdrawal Qualified Codes: F10.230 - Alcohol dependence with withdrawal, uncomplicated ER Course 29-year-old female presents with mild alcohol withdrawal, no overt signs of delirium, patient with no history of delirium tremens or alcohol withdrawal seizures Patient given 100 mg of Librium, patient improved additionally patient given 1 L of fluids We will provide patient with a Librium taper cures report was checked Disposition home with return precautions Laboratory Tests Test 11/27/19 10:55 White Blood Count 9.0 K/UL (4.8-10.8) Red Blood Count 4.87 M/UL (4.20-5.40) Hemoglobin 13.3 G/DL (12.0-16.0) Hematocrit 39.3 % (37.0-47.0) Mean Corpuscular Volume 81 FL (80-99) Mean Corpuscular Hemoglobin 27.4 PG (27.0-31.0) Mean Corpuscular Hemoglobin Concent 33.9 G/DL (32.0-36.0) Red Cell Distribution Width 13.2 % (11.6-14.8) Platelet Count 325 K/UL (150-450) Mean Platelet Volume 6.2 FL (6.5-10.1) L Neutrophils (%) (Auto) 63.2 % (45.0-75.0) Lymphocytes (%) (Auto) 21.2 % (20.0-45.0) Monocytes (%) (Auto) 8.9 % (1.0-10.0) Eosinophils (%) (Auto) 1.7 % (0.0-3.0) Basophils (%) (Auto) 5.0 % (0.0-2.0) H Sodium Level 137 MMOL/L (136-145) Potassium Level 3.5 MMOL/L (3.5-5.1) Chloride Level 102 MMOL/L (98-107) Carbon Dioxide Level 24 MMOL/L (21-32) Anion Gap 11 mmol/L (5-15) Blood Urea Nitrogen 8 mg/dL (7-18) Creatinine 0.9 MG/DL (0.55-1.30) Estimated Glomerular Filtration Rate > 60 mL/min (>60) Glucose Level 92 MG/DL (74-106) Calcium Level 8.3 MG/DL (8.5-10.1) L Total Bilirubin 0.5 MG/DL (0.2-1.0) Aspartate Amino Transferase (AST) 35 U/L (15-37) Alanine Aminotransferase (ALT) 38 U/L (12-78) Alkaline Phosphatase 78 U/L (46-116) Total Protein 6.4 G/DL (6.4-8.2) Albumin 3.6 G/DL (3.4-5.0) Globulin 2.8 g/dL Albumin/Globulin Ratio 1.3 (1.0-2.7) Lipase 51 U/L (73-393) L Human Chorionic Gonadotropin, Quant 2 mIU/mL (1-6) Last Vital Signs Date Time Temp Pulse Resp B/P (MAP) Pulse Ox O2 Delivery O2 Flow Rate FiO2 11/27/19 10:25 100 17 Room Air 11/27/19 10:15 98.2 126/82 (97) 95 Disposition: HOME, SELF-CARE Condition: Stable Scripts Chlordiazepoxide (Chlordiazepoxide HCl) 25 Mg Capsule 25 MG ORAL Follow taper, #15 CAP 0 Refills Prov: Joaquin Quezada MD 11/27/19 Referrals: NON PHYSICIAN (PCP) [facility] Kaushik Barrett [facility] Patient Instructions: Alcohol Withdrawal, Alcohol Use Disorder Additional Instructions: The patient was provided with discharge instructions, notified to follow-up with a primary care doctor and or specialist in the next 24-48 hours, and to return to the ED if they have worsening of their symptoms. Please note that this report is being documented using [employer] technology. This can lead to erroneous entry secondary to incorrect interpretation by the dictating instrument. Chlordiazepoxide Day 1: 50mg q6h Day 2: 25mg q6h Day 3: 25mg q12h Day 4: 25mg at night (Rx fifteen 25mg tabs) DO NOT DRINK ALCOHOL WITH TAPER, OTHERWISE YOU RISK OVERDOSE AND IT CAN BE LETHAL. Joaquin Quezada MD Nov 27, 2019 11:25
[2019-11-27 11:26] LABS: ALANINE AMINOTRANSFERASE 38 U/L (12-78); ALBUMIN 3.6 G/DL (3.4-5.0); ALBUMIN/GLOBULIN RATIO 1.3 (1.0-2.7); ALKALINE PHOSPHATASE 78 U/L (46-116); ASPARTATE AMINO TRANSFERASE 35 U/L (15-37); BILIRUBIN,TOTAL 0.5 MG/DL (0.2-1.0)
[2019-11-27] MEDS ORDERED: LIBRIUM25 MG ORAL (11:50)
[2019-11-27 12:05] VITALS: BP 133/70
== END 2019-11-27 12:05 | disposition home or self-care (01) ==
LOC: EMR 10:26
DX: F10.230 Alcohol dependence with withdrawal, uncomplicated (principal)
CPT/HCPCS: 36415; 80053; 83690; 84702; 85025; 96360; J7030; Z7502; 99284